=== PATIENT | male | born 1985 | race Caucasian/White ===

== ENCOUNTER 2016-03-15 21:27 | Emergency (ER) | payer BC ==
[2016-03-15] MEDS ORDERED: TAMSULOSIN HCL 0.4 MG CAP.SR.24H PO ONE (22:15)
[2016-03-15] MEDS ORDERED: KETOROLAC TROMETHAMINE INJ/PF 30 MG/1 ML SDV IV ONE (22:15)
[2016-03-15] MEDS ORDERED: NORMAL SALINE 1000 ML 1,000 ML IV ONE (22:15)
[2016-03-15] MEDS ORDERED: HYDROMORPHONE HCL INJ/PF 2 MG/ML AMPULE IV ONE (22:15)
--- NOTE | 2016-03-15 22:21 | ER Document Report ---
ED General - General Chief Complaint: Flank Pain Stated Complaint: ABDOMINAL PAIN Notes: Patient is a 30-year-old male with past medical history of obesity and hypertension who presents with progressively worsening, acute onset right flank pain that started this morning patent. Describes it as a constant, sharp, severe pain in the right flank that radiates down into his testicles. Denies a history of similar symptoms in the past. He has not done anything to try to treat his symptoms at home. Nothing worsens the pain. He has not seen his primary care physician regarding today's episode. He denies any vomiting, nausea, shortness of breath, focal abdominal pain, trauma to the area. TRAVEL OUTSIDE OF THE [place] IN LAST 30 DAYS: No - Related Data Allergies/Adverse Reactions: No Known Allergies Allergy (Verified 03/15/16 23:16) Past Medical History - General Information source: Patient - Social History Smoking Status: Never Smoker Frequency of alcohol use: Rare Drug Abuse: None Lives with: Spouse/Significant other Family History: Reviewed & Not Pertinent Review of Systems - Review of Systems Notes: Constitutional: Negative for fever. HENT: Negative for sore throat. Eyes: Negative for visual changes. Cardiovascular: Negative for chest pain. Respiratory: Negative for shortness of breath. Gastrointestinal: Negative for abdominal pain, vomiting or diarrhea. Genitourinary: Positive for dysuria and right flank pain Musculoskeletal: Negative for back pain. Skin: Negative for rash. Neurological: Negative for headaches, weakness or numbness. 10 point ROS negative except as marked above and in HPI. Physical Exam - Vital signs Interpretation: Normal Notes: PHYSICAL EXAMINATION: GENERAL: Patient appears uncomfortable, pacing around the room and appears unwell able to find a comfortable position. HEAD: Atraumatic, normocephalic. EYES: Pupils equal round and reactive to light, extraocular movements intact, sclera anicteric, conjunctiva are normal. ENT: nares patent, oropharynx clear without exudates. Moist mucous membranes. NECK: Normal range of motion, supple without lymphadenopathy LUNGS: Breath sounds clear to auscultation bilaterally and equal. No wheezes rales or rhonchi. HEART: Regular rate and rhythm without murmurs ABDOMEN: Soft, nontender, normoactive bowel sounds. No guarding, no rebound. No masses appreciated. Severe right CVA tenderness. No CVA tenderness. EXTREMITIES: Normal range of motion, no pitting or edema. No cyanosis. NEUROLOGICAL: No focal neurological deficits. Moves all extremities spontaneously and on command. PSYCH: Normal mood, normal affect. SKIN: Warm, Dry, normal turgor, no rashes or lesions noted. Course - Re-evaluation Re-evalutation: 03/15/16 22:15 Presents with findings consistent with acute nephrolithiasis. Urinalysis does show hematuria. At that ultrasound does show mild hydronephrosis on the right consistent with a kidney stone. No labs other than a urinalysis have been obtained given patient's well appearance, absence of evidence of pyuria or bacteriuria, and patient has two kidney's on bedside ultrasound. Pain was able to be controlled here in the emergency department. Patient is tolerating oral intake. Clinical history is not consistent with an acute abdominal aneurysm or dissection, [place], or pulmonary embolus. Vitals have remained within normal limits. 03/16/16 00:21 The patient has passed the stone at this time. Physically examined at the bedside and appears to be approximately 3 mm in size. Patient's pain is now completely resolved. At this time will discharge with return precautions and follow-up recommendations. Verbal discharge instructions given a the bedside and opportunity for questions given. Medication warnings reviewed. Patient is in agreement with this plan and has verbalized understanding of return precautions and the need for primary care and urology follow-up in the next 24- 72 hours. - Laboratory Laboratory results interpreted by me: 03/15/16 22:00 Urine Protein 30 H Urine Blood LARGE H Discharge - Discharge Clinical Impression: Kidney stone on right side Condition: Good Disposition: HOME, SELF-CARE Additional Instructions: Your symptoms should improve over the course of the next one week although given that you appear to have passed the stone here, you pain should likely resolve in the next several hours. If you continue to have pain for greater than one week or your pain is not controlled with the pain medications that you have been sent home with you need to return to the emergency department. Please also return if you develop fever, persistent vomiting, or any other symptoms that are concerning to you. You should take ibuprofen 600 mg every 6 hours and use the norco as prescribed only for pain not controlled by ibuprofen. You've been given Zofran to assist with nausea. Please followup closely with your primary care provider. Referrals: ROMMEL VASQUEZ MD [Primary Care Provider] - Follow up tomorrow
[2016-03-15 22:27] LABS: APPEARANCE,URINE SLIGHTLY-CLOUDY; BILIRUBIN,URINE NEGATIVE (NEGATIVE); GLUCOSE, URINE NEGATIVE (NEGATIVE); KETONES,URINE NEGATIVE (NEGATIVE); LEUKOCYTE ESTERASE,URINE NEGATIVE (NEGATIVE); NITRITE,URINE NEGATIVE (NEGATIVE); PROTEIN,URINE 30 mg/dL (NEGATIVE); URINE SPECIFIC GRAVITY 1.019; UROBILINOGEN,URINE NEGATIVE mg/dL (<2.0)
[2016-03-15] MEDS ORDERED: ONDANSETRON HCL INJ/PF 4 MG/2 ML SDV IV ONE (22:31)
[2016-03-15] MEDS ORDERED: HYDROMORPHONE HCL INJ/PF 2 MG/ML AMPULE ONE (23:01)
[2016-03-15] MEDS: HYDROMORPHONE HCL INJ/PF 2 MG/ML AMPULE IV ONE (23:09)
[2016-03-16] MEDS ORDERED: HYDROCODONE/ACETAMINOPHEN 5-325 MG 6 TAB/DSPK PO PRN (00:17)
[2016-03-16] MEDS ORDERED: ONDANSETRON ODT 4 MG TAB (6 TAB/DSPK) PO PRN (00:17)
[2016-03-16 00:37] VITALS: BP 117/71
== END 2016-03-16 00:37 | disposition home or self-care (01) ==
LOC: ER 21:27
DX: N20.0 Calculus of kidney (principal); R10.9 Unspecified abdominal pain; I10 Essential (primary) hypertension
CPT/HCPCS: 96376; 99284; 96361; 96374; 96375; 81001; J1885; J1170; J2405; J7030

== ENCOUNTER 2017-11-01 12:30 | Emergency (ER) | payer OTHER, BC ==
[2017-11-01 12:53] VITALS: BP 122/72
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
== END 2017-11-01 13:30 | disposition home or self-care (01) ==
LOC: ER 12:30
DX: S39.012A Strain of muscle, fascia and tendon of lower back, initial encounter (principal); V49.40XA Driver injured in collision with unspecified motor vehicles in traffic accident, initial encounter
CPT/HCPCS: 99283